=== PATIENT | female | born 1960 | race African-American/Black ===

== ENCOUNTER 2024-05-20 21:46 | Emergency (ER) | payer BC, MEDICAID ==
[~2024-05-20] VITALS: Ht 157.5 cm; Wt 65.0 kg
[2024-05-20 22:21] VITALS: BP 117/68; PULSE 98; RESP 16; TEMP 37; O2SAT 94
[2024-05-20] MEDS ORDERED: KETOROLAC 30MG/ML VIAL IM ONE (22:30)
== END 2024-05-21 00:18 | disposition left against medical advice (07) ==
LOC: ER 21:46
DX: M25.551 Pain in right hip (principal); M79.672 Pain in left foot; Z88.0 Allergy status to penicillin
CPT/HCPCS: 73502; 73590; 99284

== ENCOUNTER 2024-05-21 05:06 | Emergency (ER) | payer MEDICAID ==
[~2024-05-21] VITALS: Ht 160 cm; Wt 69.0 kg
[2024-05-21 05:14] VITALS: BP 124/51; PULSE 96; RESP 18; TEMP 36.8; O2SAT 95
== END 2024-05-21 05:31 | disposition left against medical advice (07) ==
LOC: ER 05:06
DX: R10.2 Pelvic and perineal pain (principal); Z53.21 Procedure and treatment not carried out due to patient leaving prior to being seen by health care provider